=== PATIENT | male | born 1995 | race Caucasian/White ===

== ENCOUNTER 2022-01-24 07:00 | Emergency (ER) | payer OTHER, SELFPAY ==
[2022-01-24 07:42] VITALS: BP 123/82; PULSE 81; RESP 14; TEMP 36.7; O2SAT 99; BMI 27.3
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
[2022-01-24 07:59] VITALS: BP 126/76; PULSE 89; RESP 16; O2SAT 96
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
[2022-01-24 09:34] VITALS: BP 132/71
== END 2022-01-24 09:36 | disposition home or self-care (01) ==
PROVIDERS: Emergency Provider Physician Assistant; PCP Nurse Practitioner Family
DX: S00.03XA Contusion of scalp, initial encounter (principal); S22.42XA Multiple fractures of ribs, left side, initial encounter for closed fracture; V59.40XA Driver of pick-up truck or van injured in collision with unspecified motor vehicles in traffic accident, initial encounter
CPT/HCPCS: 70450; 71101; 99284

== ENCOUNTER 2023-02-11 10:43 | Emergency (ER) | payer OTHER, SELFPAY ==
[2023-02-11 10:51] VITALS: BP 140/84; PULSE 81; RESP 18; TEMP 36.8; O2SAT 98; BMI 27.6
--- NOTE | 2023-02-11 10:54 | XR_ITS ---
WS: [id number] Exam: XR hand RT min 3V* [id number] Date/Time of Exam: 02/11/2023 10:58 AM Reason For Exam: injury No fracture or dislocation. Soft tissue laceration of the distal third finger. No radiopaque foreign bodies identified. IMPRESSION: 1. No fracture or bony injury. 2. Laceration of the distal third finger.
--- NOTE | 2023-02-11 10:56 | W.ED.WOUNDLC ---
Documented by User: Aida Orosco MD 02/11/23 11:48 HPI - Wound/Laceration General: Chief Complaint: Wound/Laceration Stated Complaint: right hand finger laceration Time Seen by Provider: 02/11/23 10:51 Source: patient Mode of arrival: ambulatory Limitations: no limitations History of Present Illness: 27-year-old male states that he is at work was using a chainsaw he states that the chainsaw slipped and lacerated his right middle finger. He does have a laceration to the distal tip he has full range of motion rates his pain a 3 out of 10 denies any other injuries Associated symptoms: Denies chills, fever(s), nausea or vomiting Review of Systems Const: Denies: fever(s), chills, body aches or change in appetite Eyes: Denies: blurry vision or eye discomfort ENMT: Denies: throat pain or dental pain Card: Denies: chest pain Resp: Denies: dyspnea GI: Denies: abdominal pain, nausea, vomiting or diarrhea : Denies: dysuria Musc: Reports: extremity pain; Denies: neck pain or back pain Skin/Breast: Denies: rash Neuro: Denies: headache(s) Physical Exam Const: COMMON NORMALS: no acute distress, patient oriented x3 and healthy appearing HENMT: COMMON NORMALS: normocephalic and atraumatic HEAD & SCALP: normocephalic and atraumatic Eye: COMMON NORMALS: conjunctivae normal CONJUNCTIVA: Yes conjunctivae normal Neck/C-Spine: COMMON NORMALS: full ROM and supple Chest: COMMONS NORMALS: normal inspection of the chest Resp: COMMON NORMALS: normal respiratory effort Cardio: COMMON NORMALS: regular rate, regular rhythm and No murmurs present (Cardio) RATE: regular rate RHYTHM: regular rhythm Extremity: COMMON NORMALS: full ROM NARRATIVE EXTREMITY EXAM: Laceration to distal tip of right middle finger Y-shaped roughly OTHER: 1.5 cm no tendon involvement Neuro: COMMON NORMALS: patient oriented x3, moves all extremities and no focal motor deficits Psych: COMMON NORMALS: mental status grossly normal, Normal thought process present and cooperative THOUGHT PROCESS: Normal thought process present Skin: COMMON NORMALS: no rashes or lesions noted and no wounds GENERAL SKIN EXAM: no rashes or lesions noted Course Vital Signs: Vital signs: Vital Signs Temperature 98.3 F 02/11/23 10:51 Pulse Rate 81 02/11/23 10:51 Respiratory Rate 18 02/11/23 10:51 Blood Pressure 140/84 02/11/23 10:51 Pulse Oximetry 98 02/11/23 10:51 Oxygen Delivery Me thod Room Air 02/11/23 10:51 MDM - Wound/Laceration Medical Decision Making I was consulted by Dr. Orosco to repair patient's finger laceration. This was completed as documented. Other than laceration repair I did not actively participate in patient's care. ES Patient presents with finger laceration x-ray shows no fracture wound was repaired by midlevel he stable for discharge Motrin Tylenol for pain he is return if worsening. Discharge Plan Discharge Patient Disposition: Home Clinical Impression: Laceration Condition: Stable Prescriptions: No Action methocarbamol 750 mg tablet 750 mg PO Q8H Qty: 21 0RF Discharge Orders: Discharge ED (Routine); Ordered 02/11/23 Ordered By: Aida Orosco Referrals: Madeline Sherwood FNP [Primary Care Provider] - 4-7 days Discharge Diet: Advance as tolerated Discharge Activity: Resume usual activity Patient Instructions: Care For Your Stitches (ED), Finger Laceration (ED) Activity Restrictions/Additional Instructions: suture removal in 7 days Coding Level of Care Code ED Crutching Contractor for Chg Fwd Documented by User: [email or web address] Price 02/11/23 11:35 HPI - Wound/Laceration General: Chief Complaint: Wound/Laceration Stated Complaint: right hand finger laceration Time Seen by Provider: 02/11/23 10:51 Procedures Laceration Laceration 1: Site: hand (middle finger) Side (If applicable): right Size (cm): 1.5 Description: irregular and other (tissue loss from chain saw) Depth: simple, single layer Local Anesthetic: bupivacaine 0.25% (digital block) Amount of anesthesia used (mL): 2.5 Pre-repair: wound explored and irrigated extensively Size (cm): 4-0 Number of sutures: 4 Technique: simple, interrupted Course Vital Signs: Vital signs: Vital Signs Temperature 98.3 F 02/11/23 10:51 Pulse Rate 81 02/11/23 10:51 Respiratory Rate 18 02/11/23 10:51 Blood Pressure 140/84 02/11/23 10:51 Pulse Oximetry 98 02/11/23 10:51 Oxygen Delivery Me thod Room Air 02/11/23 10:51 MDM - Wound/Laceration Medical Decision Making I was consulted by Dr. Orosco to repair patient's finger laceration. This was completed as documented. Other than laceration repair I did not actively participate in patient's care. ES All radiology interpretation(s) finalized by discharge Discharge Plan Discharge Patient Disposition: Home Clinical Impression: Laceration Condition: Stable Prescriptions: No Action methocarbamol 750 mg tablet 750 mg PO Q8H Qty: 21 0RF Discharge Orders: Discharge ED (Routine); Ordered 02/11/23 Ordered By: Aida Orosco Referrals: Madeline Sherwood FNP [Primary Care Provider] - 4-7 days Discharge Diet: Advance as tolerated Discharge Activity: Resume usual activity Patient Instructions: Care For Your Stitches (ED), Finger Laceration (ED) Activity Restrictions/Additional Instructions: suture removal in 7 days Coding Level of Care Code ED Crutching Contractor for Edgardo Herr
[2023-02-11] MEDS: BUPivacaine 0.5% INJ 10 mL INJECTION (10:57)
[2023-02-11] MEDS: tetanus-dipt-pertussis 0.5 mL SDV IM (10:58)
--- NOTE | 2023-02-11 11:28 | PC.NURSE ---
laceration to Right 3rd digit repaired with sutures, laceration tray, irrigation of 250mL normal saline, betadine. bleeding controlled at this time.
== END 2023-02-11 11:53 | disposition home or self-care (01) ==
PROVIDERS: Emergency Provider Emergency Medicine; PCP Nurse Practitioner Family
DX: S61.212A Laceration without foreign body of right middle finger without damage to nail, initial encounter (principal); W29.3XXA Contact with powered garden and outdoor hand tools and machinery, initial encounter; Y99.0 Civilian activity done for income or pay; Z23 Encounter for immunization
CPT/HCPCS: 12001; 73130; 90471; 90715; 99284; J3490

== ENCOUNTER 2025-03-11 11:12 | Emergency (ER) | payer OTHER, SELFPAY ==
--- OUTSIDE RECORDS SUMMARY | 2025-03-04 22:06 | XMS_ITS | Encounter Summary ---
Author Organization [facility] Address [address] [place] [address] Care Team Providers Care Physical Trainer Name Role Phone Jordin Lara MD Primary Care Provider [phone] [phone] Reason for Visit * Reason Comments Wound Check Encounter Details Date Type Department Care Team (Late st Contact Info) Description 03/04/2025 10:06 PM MATHEMATICAL PHYSICIST - 03/04/2025 10:26 PM [facility] Emergency [facility] Emergency Medicine [address] [place] [address] [address] [place] [id number] Charlie Mejia MD [address] [place] [address] [place] [address] Encounter for post surgical wound check (Primary Dx) Discharge Disposition: Home or Self Care Social History Tobacco Use Types Packs/Day Years Used Date Smoking Tobacco: Some Days Cigarettes Cigars Smokeless Tobacco: Former Chew Tobacco Cessation:Ready to Q uit: Not Asked; Counseling Given: Not Answered Comments:2-3 small cigars a day Alcohol Use Standard Drinks/Week Comments Not Currently 0 (1 standard drink = 0.6 oz pur e alcohol) Food Insecurity Answer Date Recorded Do you find you are eating l ess than you should because you can t pay for food? No 03/04/2025 Transportation Needs Answer Date Record ed Have you gone without health care because you didn t have a way to get there? Or worry about transportation for future doctor visits, car pick up driver medication, etc.? No 2024 Housing Stability Answer Date Recorded Do you worry you won t have a steady place to sleep or struggle to pay rent or mortgage? No 03/04/2025 Utility Needs Answer Date Recorded Do you have difficulty payin g for utility costs (electric, water or gas bills)? No 03/04/2025 Medication Needs Answer Date Recorded Have you skipped taking medi cation due to cost or worry you can t afford new medications? No 03/04/2025 Feeling Safe Answer Date Recorded Are you in a relationship wi th someone who hurts you emotionally and/or physically? No 03/04/2025 Sex and Gender Information Value Date Recorded Sex Assigned at Not on file Legal Sex Male 11:36 PM MATHEMATICAL PHYSICIST Gender Identity Not on file Sexual Orientation Not on file documented as of this encounter Last Filed Vital Signs Vital Sign Reading Time Taken Comments Blood Pressure 130/98 03/04/2025 10:06 PM MATHEMATICAL PHYSICIST Pulse - - Temperature 36.9 C (98.4 F) 03/04/2025 10:06 PM MATHEMATICAL PHYSICIST Respiratory Rate 18 03/04/2025 10:06 PM MATHEMATICAL PHYSICIST Oxygen Saturation 100% 03/04/2025 10:06 PM MATHEMATICAL PHYSICIST Inhaled Oxygen Concentration - - Weight 85.7 kg (189 lb) 03/04/2025 10:06 PM MATHEMATICAL PHYSICIST Height 175.3 cm (5' 9 ) 03/04/2025 10:06 PM MATHEMATICAL PHYSICIST Body Mass Index 27.91 03/04/2025 10:06 PM MATHEMATICAL PHYSICIST documented in this encounter Discharge Instructions * Attachments The following attachments cannot be sent through Care Everywhere. * Wound Check (Nepalese) * Cephalexin (Nepalese) documented in this encounter Medications at Time of Discharge cephALEXin (KEFLEX) 500 mg capsule Take 1 Capsule (500 mg) by mouth 4 times daily for 7 days. 28 Capsule 03/04/2025 03/11/2025 ibuprofen (MOTRIN) 200 mg tablet Take 200 mg by mouth every 6 hours as needed for Pain, Mild. documented as of this encounter ED Notes * Amaya Porter RN - 03/04/2025 10:09 PM CST Jeff Puentes 29 y.o. male, arrived to the ED via TRANSPORTATION: private vehicle for complaints of wanting a wound check had a hernia repair and vasectomy last week at surgery center and on left testicle glue is coming off concerned that he has an open wound. Rates pain in right groin and left testicle 2/10 constant ache. Chief Complaint Patient presents with Wound Check . Vitals taken, patient placed on monitor, clothing removed as needed per policy, privacy provided to patient. Respiratory: WDL - Regular rhythm, symmetrical chest expansion, no dyspnea , Cardiac/Circulatory: WDL - No numbness or tingling, no chest pain , Skin: WDL - Normal color for ethnicity, skin intact, patient is Alert and Oriented x4, pain scale: 2/10, findings; bleeding: without any bleeding noted. Behavior during evaluation: appropriate. Belongings secured, patient Weapons assessment: denied possession of any weapons or firearms at this time. Patient comforted, all questions answered to the best of the staff's ability, education performed, and left patient in the room with the call light in reach, bed in lowest position, wheels locked, side rails up. EMATICAL PHYSICIST * Charlie Mejia MD - 03/04/2025 9:49 PM CST 03/05/25 7:35 PM HISTORY OF PRESENT ILLNESS Jeff Puentse, a 29 y.o. male presents to the ED with a Chief Complaint of Wound Check Subjective This patient is a 29-year-old white male who presents to the emergency department concerned about apostoperative wound. Patient underwent hernia repair and vas ectomy last week. He states the glue over the scrotal incision has come loose and has exposed to the wound. He is concerned it might get infected. He has noticed a little bit of yellow drainage. He has not had a fever. REVIEW OF SYSTEMS Review of Systems Constitutional: Negative for appetite change, chills, diaphoresis, fatigue and fever. HENT: Negative for congestion, ear pain, postnasal drip, rhinorrhea, sinus pressure and sore throat. Eyes: Negative for pain and visual disturbance. Respiratory: Negative for cough, chest tightness, shortness of breath and wheezing. Cardiovascular: Negative for chest pain, palpitations and leg swelling. Gastrointestinal: Negative for abdominal distention, abdominal pain, blood in stool, constipation, diarrhea, nausea and vomiting. Genitourinary: Negative for decreased urine volume, difficulty urinating, dysuria, flank pain, frequency, hematuria, testicular pain and urgency. Musculoskeletal: Negative for arthralgias, back pain, joint swelling, myalgias, neck pain and neck stiffness. Skin: Negative for rash. Neurological: Negative for dizziness, seizures, syncope, speech difficulty, weakness, light-headedness, numbness and headaches. Hematological: Negative for adenopathy. Psychiatric/Behavioral: Negative for behavioral problems, confusion, decreased concentration, dysphoric mood, self-injury, sleep disturbance and suicidal ideas. The patient is not nervous/anxious. All other systems reviewed and are negative. PAST MEDICAL HISTORY REVIEWED MEDICAL: Patient has a past medical history of Bronchitis and GERD (gastroesophageal reflux disease). SURGICAL: Patient has a past surgical history that includes pr laparoscopy surg cholecystectomy (N/A, 10/23/2023); hernia repair; and vasectomy. FAMILY: Patient's family history includes Melanoma in his father; Other in his paternal grandfather. SOCIAL: reports that he has been smoking cigars and cigarettes. He has quit using smokeless tobacco. His smokeless tobacco use included chew. He reports that he does not currently use alcohol. He reports that he does not use drugs. History Weight: 2296 g (5 lb 1 oz) Social History Other Topics Concern Not on file ALLERGIES Patient has no known allergies. HOME MEDICATIONS Discharge Medication List as of 03/04/2025 10:21 PM START taking these medications Details cephALEXin (KEFLEX) 500 mg capsule Take 1 Capsule (500 mg) by mouth 4 times daily for 7 days., Disp-28 Capsule, R-0 CONTINUE these medications which have NOT CHANGED Details ibuprofen (MOTRIN) 200 mg tablet Take 200 mg by mouth every 6 hours as needed for Pain, Mild. STOP taking these medications omeprazole (PriLOSEC) 20 mg Capsule, Delayed Release(E.C.) Comments: Reason for Stopping: multivitamin (DAILY-ERMIAS) tablet Comments: Reason for Stopping: Objective PHYSICAL EXAM INITIAL VS BP: (!) 130/98 (03/04/252205), Heart Rate: 94 bpm (03/04/252205), Resp: 18 (03/04/252205), Pulse: (not recorded), Temp: 98.4 ??F (36.9 ??C) (03/04/252205), Temp src: Temporal (03/04/252205), SpO2: 100 % (03/04/252205), Height: 5' 9 (175.3 cm) (03/04/252205), Weight: 85.7 kg (189 lb) (03/04/252205), BMI (Calculated): (!) 27.89 (03/04/252205) No LMP for male patient. Physical Exam Vitals and nursing note reviewed. Constitutional: General: He is not in acute distress. Appearance: Normal appearance. He is not ill-appearing. HENT: Head: Normocephalic and atraumatic. Eyes: Conjunctiva/sclera: Conjunctivae normal. Pupils: Pupils are equal, round, and reactive to light. Cardiovascular: Rate and Rhythm: Normal rate and regular rhythm. Pulmonary: Effort: Pulmonary effort is normal. No respiratory distress. Breath sounds: Normal breath sounds. Abdominal: General: Abdomen is flat. Bowel sounds are normal. Palpations: Abdomen is soft. Tenderness: There is no abdominal tenderness. Musculoskeletal: General: No tenderness. Normal range of motion. Skin: General: Skin is warm and dry. Comments: The skin over the scrotum at the surgical site appears to be healing normal. No drainage or erythema. Neurological: General: No focal deficit present. Mental Status: He is alert and oriented to person, place, and time. Psychiatric: Mood and Affect: Mood normal. Behavior: Behavior normal. DIAGNOSTICS LAB: No data to display RADIOLOGY: No orders to display EKG: PROCEDURES Procedures MEDICAL DECISION MAKING AND PLAN OF CARE Medical Decision Making Patient was placed on Keflex. Recommended he follow-up with his surgeon as scheduled. He was discharged in stable condition. Risk Prescription drug management. Clinical Scoring & Consults Medications Administered During the ED Stay from 03/04/20250 to 03/05/2025 1935 Date/Time Order Dose Route Action 03/04/20252224 MATHEMATICAL PHYSICIST cephALEXin (KEFLEX) capsule 500 mg 500 mg Oral Given Discharge Medication List as of 03/04/2025 10:21 PM START taking these medications Details cephALEXin (KEFLEX) 500 mg capsule Take 1 Capsule (500 mg) by mouth 4 times daily for 7 days., Disp-28 Capsule, R-0 CONTINUE these medications which have NOT CHANGED Details ibuprofen (MOTRIN) 200 mg tablet Take 200 mg by mouth every 6 hours as needed for Pain, Mild. STOP taking these medications omeprazole (PriLOSEC) 20 mg Capsule, Delayed Release(E.C.) Comments: Reason for Stopping: multivitamin (DAILY-ERMIAS) tablet Comments: Reason for Stopping: LAST VS BP: (!) 130/98 (03/04/252205), Heart Rate: 94 bpm (03/04/252205), Resp: 18 (03/04/252205), Pulse: (not recorded), Temp: 98.4 ??F (36.9 ??C) (03/04/252205), Temp src: Temporal (03/04/252205), SpO2: 100 % (03/04/252205) CLINICAL IMPRESSION Diagnosis Diagnosis Comment Added By Time Added Encounter for post surgical wound check [Z48.89] Charlie Mejia MD 03/04/2025 10:19 PM DISPOSITION, EDUCATION AND MEDICATION RECONCILIATION Medications reconciled. See after visit summary for patient education on discharged patients. ED Disposition ED Disposition Discharge Condition Stable User Charlie Mejia MD Date/Time Sat Mar 04, 2025 10:18 PM Comment -- ATTESTATION STATEMENTS EMATICAL PHYSICIST documented in this encounter Miscellaneous Notes * Gen AI VANE - GENERATIVE AI HANDOFF NOTE - 03/05/2025 11:48 PM CST ## ER_course: ## # DIAGNOSIS: Encounter for post-surgical wound check. Jeff Puentes, a 29-year-old male, presented to the ED with concerns about a postoperative wound following hernia repair and vasectomy. He reported that the glue over the scrotal incision had come loose, exposing the wound, and noticed a little yellow drainage. He was concerned about potential infection but had no fever. Pain was rated at 2/10 in the right groin and left testicle. # During the ER visit, the physical exam showed normal healing at the surgical site with no drainage or erythema. Vitals were stable with a blood pressure of 130/98 and heart rate of 94 bpm. The patient was alert and oriented, and no acute distress was noted. # Medications administered included cephALEXin (KEFLEX) 500 mg orally, given during the ED stay. ## Follow_up_orders: ## # START taking cephALEXin (KEFLEX) 500 mg capsule, 1 capsule by mouth 4 times daily for 7 days. # CONTINUE ibuprofen (MOTRIN) 200 mg tablet, 200 mg by mouth every 6 hours as needed for mild pain. # STOP omeprazole (PriLOSEC) 20 mg capsule and multivitamin (DAILY-ERMIAS) tablet. # Recommended follow-up with the surgeon as scheduled. ## Home_Situation: ## # No specific factors impairing follow-up care were noted. The patient arrived via private vehicle, indicating access to transportation. No language barriers or financial constraints were mentioned. EMATICAL PHYSICIST documented in this encounter Plan of Treatment Not on file documented as of this encounter Visit Diagnoses Diagnosis Encounter for post surgical wound check- Primary documented in this encounter Administered Medications Inactive Administered Medications - up to 3 most recent administrations Medication Order MAR Action Action Date Dose Rate Site cephALEXin (KEFLEX) capsule 500 mg 500 mg, Oral, ONE TIME ONLY, 1 dose, On 03/04/25 at 2230, Routine, Antibiotic Indication: Wound / Cellulitis / Abscess Given 03/04/2025 10:25 PM MATHEMATICAL PHYSICIST 500 mg documented in this encounter Active and Recently Administered Medications Times are shown in MATHEMATICAL PHYSICIST. Scheduled Medication Order 03/02/2025 03/03/2025 03/04/2025 cephALEXin (KEFLEX) capsule 500 mg (COMPLETED) 500 mg, Oral, ONE TIME ONLY, 1 dose, On 03/04/25 at 2230, Routine, Antibiotic Indication: Wound / Cellulitis / Abscess 2224 (Given - Provid er: Amaya Porter RN) documented in this encounter Care Teams Physical Trainer Relationship Specialty Start Date End Date Jordin Lara MD [address] [address] PCP - General Family Practice 12/13/24 documented as of this encounter
[2025-03-11 11:19] VITALS: BP 131/89; PULSE 80; RESP 14; TEMP 37.2; O2SAT 97; BMI 27.8
--- NOTE | 2025-03-11 11:19 | USR_ITS ---
PROCEDURE INFORMATION: Exam: US Scrotum Exam date and time: 03/11/2025 12:24 PM Age: 29 years old Clinical indication: Scrotum pain; Prior Surgery; Surgery Date: <1 month; Surgery Type: history of vasectomy 16 days ago; Additional Info: testicular swelling and pain status post vasectomy TECHNIQUE: Imaging protocol: Real-time ultrasound of the scrotum and contents with color Doppler and image documentation. COMPARISON: No relevant prior studies available. FINDINGS: Right testicle: Right testicle is normal in size and echogenicity, measuring 4.1 x 2.0 x 2.7 cm. No right testicular mass. Normal color Doppler and arterial waveforms. No torsion. Left testicle: Left testicle is normal in size and echogenicity, measuring 3.7 x 2.2 x 2.4 cm. No left testicular mass. Normal color Doppler and arterial waveforms however the left testicle slightly hypervascular compared to the right side. No torsion. Epididymides: Right epididymis measures 8 mm in thickness with normal echogenicity. Left epididymis is thickened and hypervascular measuring 13 mm in thickness. There is a tiny left epididymal cyst present. Scrotum/soft tissues: Avascular complex fluid is seen within the scrotum bilaterally, left greater than right side. Question of complex skin thickening or fluid collection in the posterior scrotal wall on the left. US/US scrotum [id number] IMPRESSION: 1. Hypervascular left testicle and epididymis suggesting epididymo-orchitis. Complex fluid within the scrotum bilaterally, scrotal hematoma or abscess is not totally excluded. 2. Question of scrotal wall abscess versus hematoma in the posterior wall on the left.
--- OUTSIDE RECORDS SUMMARY | 2025-03-11 11:21 | XMS_ITS | Clinical Summary ---
Author Organization [facility] Address [address] [facility] Attn: Epic Prelude [place] [address] Care Team Providers Care Corporate Buyer Name Role Phone Jordin Lara MD Primary Care Provider [phone] [phone] Allergies No known active allergies Medications ibuprofen (MOTRIN) 200 mg tablet Take 200 mg by mouth every 6 hours as needed for Pain, Mild. Active cephALEXin (KEFLEX) 500 mg capsule Take 1 Capsule (500 mg) by mouth 4 times daily for 7 days. 28 Capsule 03/04/2025 Active Active Problems Problem Noted Date Diagnosed Date Cholecystitis 10/23/2023 Multiple closed fractures of ribs of left side 1 Tobacco use 01/22/2015 Snoring 08/28/2011 Hypertrophy tonsils 08/28/2011 Resolved Problems Problem Noted Date Diagnosed Date Resolved Date Malaise and fatigue 08/28/2011 02/13/20 14 Encounters Date Type Department Care Team Description 03/07/2025 External Device Data [facility] ABSTRACTION Provider, Abstract 03/07/2025 External Device Data [facility] ABSTRACTION Provider, Abstract 03/07/2025 External Device Data [facility] ABSTRACTION Provider, Abstract 03/04/2025 10:06 PM MANUFACTURING ASSISTANT - 03/04/2025 10:26 PM [facility] Emergency [facility] Emergency Medicine [address] [place] [address] Charlie Mejia MD Encounter for post surgical wound check (Primary Dx) Discharge Disposition: Home or Self Care 03/04/2025 Travel 02/15/2025 External Device Data STL ABSTRACTION Provider, Abstract 02/15/2025 External Device Data [facility] ABSTRACTION Provider, Abstract 02/08/2025 External Device Data [facility] ABSTRACTION Provider, Abstract 02/08/2025 External Device Data [facility] ABSTRACTION Provider, Abstract 01/18/2025 3:00 PM CDT - 01/18/2025 11:59 PM CDT Hospital Encounter [facility] [address] [place] [id number] Sergio Melara MD Discharge Disposition: Home or Self Care 01/18/2025 Prep for Surgery [facility] [address] [place] [id number] Sergio Melara MD 12/20/2024 External Device Data STL ABSTRACTION Provider, Abstract 12/13/2024 12:00 PM CDT Video Visit [facility] [address] [place] [id number] Tricia Edwards NP Right inguinal hernia (Primary Dx); Encounter for vasectomy counseling from Last 3 Months Family History Medical History Relation Name Comments Melanoma Father Other Paternal Grandfather AAA Breast Cancer Neg Hx Colon Cancer Neg Hx Relation Name Status Comments Father Maternal Grandfather Maternal Grandmother Mother Paternal Grandfather Paternal Grandmother Social History Tobacco Use Types Packs/Day Years [...] worry about transportation for future doctor visits, picket labor union medication, etc.? No 2024 Housing Stability Answer [...] on file Legal Sex Male 11:36 PM MANUFACTURING ASSISTANT Gender Identity Not on file Sexual Orientation Not on file Last Filed Vital Signs Vital Sign Reading Time Taken Comments Blood Pressure 130/98 03/04/2025 10:06 PM MANUFACTURING ASSISTANT Pulse 81 01/18/2025 3:07 PM CDT Temperature 36.9 C (98.4 F) 03/04/2025 10:06 PM MANUFACTURING ASSISTANT Respiratory Rate 18 03/04/2025 10:06 PM MANUFACTURING ASSISTANT Oxygen Saturation 100% 03/04/2025 10:06 PM MANUFACTURING ASSISTANT Inhaled Oxygen Concentration - - Weight 85.7 kg (189 lb) 03/04/2025 10:06 PM MANUFACTURING ASSISTANT Height 175.3 cm (5' 9 ) 03/04/2025 10:06 PM MANUFACTURING ASSISTANT Body Mass Index 27.91 03/04/2025 10:06 PM MANUFACTURING ASSISTANT Plan of Treatment Health Maintenance Due Date Last Done Comments DTAP/TDAP/TD VACCINES (1 - Tdap) 2013 HPV VACCINES (1 - 3-dose SCDM series) 2021 Preventative Visit- Commercial 04/20/2024 INFLUENZA VACCINE (#1) 2024 HEPATITIS B VACCINES Completed 02/23/1996, 02/16/1995, 1994 Medical Devices Implanted Type Area Cabin Crew Device Identifier Shelf Expiration Date Model / Serial / Lot Clip Crtg Med/Lrg 1112 - [id number] Implanted:Qty: 1 on 10/23/2023 by Jamie Pringle MD at [facility] Clip N/A: Abdomen [employer] [id number] 07/15/2028 1112 / / [id number] Insurance [facility] [employer] [id number] [facility] Address: [address] [address] Advance Directives For more information, please contact: [phone] * Full Code (Latest Code Status on File) Date Activated Date Inactivated Comments 10/23/2023 4:44 PM 10/23/2023 9:25 PM * Full Code Date Activated Date Inactivated Comments 10/23/2023 3:21 PM 10/23/2023 4:44 PM Care Teams Corporate Buyer Relationship Specialty Start Date End Date Jordin Lara MD [address] [phone] PCP - General Family Practice 12/13/24
--- OUTSIDE RECORDS SUMMARY | 2025-03-11 11:21 | XMS_ITS | Encounter Summary ---
Author Organization [facility] Address [address] [place] [address] Care Team Providers Care Changer Fixer Name Role Phone Jordin Lara MD Primary Care Provider [phone] Encounter Details Date Type Department Care Team (Late st Contact Info) Description 03/07/2025 External Device Data [facility] ABSTRACTION Provider, Abstract NO ADDRESS ON FILE Social History Tobacco Use Types Packs/Day Years Used Date Smoking Tobacco: Some Days Cigarettes Cigars Smokeless Tobacco: Former Chew Comments:2-3 small cigars a day Alcohol Use [...] worry about transportation for future doctor visits, slat pickler medication, etc.? No 2024 Housing Stability Answer [...] on file Legal Sex Male 11:36 PM TRAIN GATE ATTENDANT Gender Identity Not on file Sexual Orientation Not on file documented as of this encounter Plan of Treatment Not on file documented as of this encounter Visit Diagnoses Not on filedocumented in this encounter Care Teams Changer Fixer Relationship Specialty Start Date End Date Jordin Lara MD [address] [address] PCP - General Family Practice 12/13/24 documented as of this encounter
--- OUTSIDE RECORDS SUMMARY | 2025-03-11 11:21 | XMS_ITS | Encounter Summary ---
Author Organization [facility] Address [address] [place] [address] Care Team Providers Care Fan Engine Engineer Name Role Phone Jordin Lara MD Primary Care Provider [phone] Encounter Details Date Type Department Care Team [...] worry about transportation for future doctor visits, nut picker medication, etc.? No 2024 Housing Stability Answer [...] on file Legal Sex Male 11:36 PM RAILWAYS ASSISTANT Gender Identity Not on file Sexual Orientation Not on file documented as of this encounter Plan of Treatment Not on file documented as of this encounter Visit Diagnoses Not on filedocumented in this encounter Care Teams Fan Engine Engineer Relationship Specialty Start Date End Date Jordin Lara MD [address] [address] PCP - General Family Practice 12/13/24 documented as of this encounter
--- OUTSIDE RECORDS SUMMARY | 2025-03-11 11:21 | XMS_ITS | Clinical Summary ---
Author Organization [facility] Address [address] [place] [id number] Care Team Providers Care Biomass Technician Name Role Phone Unavailable Primary Care Provider Unavailabl e Allergies No known active allergies Medications Multiple Vitamin (DAILY VITES) TABS Take 1 tablet by mouth Nightly Active Encounters Date Type Department Care Team Description 01/27/2025 10:50 AM CDT Office Visit [facility] [employer] [facility] [employer] [facility] [address] [employer] [place], [place] [id number] Encounter for drug screening (Primary Dx) from Last 3 Months Social History Tobacco Use Types Packs/Day Years Used Date Smoking Tobacco: Former Cigarettes Smokeless Tobacco: Never Tobacco Cessation:Counseling Given: Not Answered Alcohol Use Standard Drinks/Week Comments Not Currently 0 (1 standard drink = 0.6 oz pur e alcohol) Alcohol Use Answer Date Recorded Frequency of Alcohol Consumption Not on file 06/28/2024 Average Number of Drinks Not on file 025 Frequency of Binge Drinking Not on file 06/18 Alcohol Use Status Not Currently 06/28/2024 Average alcohol consumption Not on file 06/18 Sex and Gender Information Value Date Recorded Sex Assigned at Not on file Legal Sex Male 1:06 PM CDT Gender Identity Not on file Sexual Orientation Not on file Last Filed Vital Signs Vital Sign Reading Time Taken Comments Blood Pressure 100/70 07/29/2024 8:17 AM CDT Pulse 88 07/13/2024 12:38 PM CDT Temperature 37.1 C (98.7 F) 07/13/2024 12:38 PM CDT Respiratory Rate 18 07/13/2024 12:38 PM CDT Oxygen Saturation 98% 07/13/2024 12:38 PM CDT Inhaled Oxygen Concentration - - Weight 88 kg (194 lb 1.6 oz) 07/29/2024 8:17 AM CDT Height 175.3 cm (5' 9 ) 07/29/2024 8:17 AM CDT Body Mass Index 28.66 07/29/2024 8:17 AM CDT Plan of Treatment Health Maintenance Due Date Last Done Comments HIV Screening 1994 Hepatitis C Screening ages 1 8 to 79 once 1994 MMR VACCINES (1 of 1 - Stand rody series) 08/06/1995 YEARLY WELLNESS EXAM 1997 DEPRESSION SCREENING 2006 Varicella Vaccine (1 of 2 - 13+ 2-dose series) 08/06/2007 HPV VACCINES (1 - Male 3-dos e series) 2009 BMI Above/Below Normal Parameters 2012 ADULT TETANUS 2013 HEPATITIS B VACCINES (1 of 3 - 19+ 3-dose series) 2013 Influenza Vaccine 11/18/2024 COVID-19 Immunization (1 - 2 - season) 2024 Zoster Vaccine (Recombinant Vaccine) (1 of 2) 2044 HEPATITIS A VACCINES Aged Out No long er eligible based on patient's age to complete this topic HIB VACCINES Aged Out No longer eligi ble based on patient's age to complete this topic IPV VACCINES Aged Out No longer eligi ble based on patient's age to complete this topic MENINGOCOCCAL VACCINE Aged Out No glenna hua eligible based on patient's age to complete this topic Meningococcal B Vaccine Aged Out No l onger eligible based on patient's age to complete this topic Pneumococcal Vaccine: Peds t o 50 & At-Risk Patients Aged Out No longer eligible b ased on patient's age to complete this topic ROTAVIRUS VACCINES Aged Out No longer eligible based on patient's age to complete this topic
--- OUTSIDE RECORDS SUMMARY | 2025-03-11 11:21 | XMS_ITS | Encounter Summary ---
Author Organization [facility] Address [address] [facility] Attn: [place] [address] Care Team Providers Care Dye Line Operator Name Role Phone Jordin Lara MD Primary Care Provider [phone] Encounter Details Date Type Department Care Team (Latest Contact Info) Description 03/04/2025 Travel Social History Tobacco Use Types Packs/Day Years [...] worry about transportation for future doctor visits, picker and sorter load and unload medication, etc.? 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
--- OUTSIDE RECORDS SUMMARY | 2025-03-11 11:21 | XMS_ITS | Clinical Summary ---
Author Organization [facility] Address [address] [place] [address] Care Team Providers Care Fertilizer Mixer Name Role Phone Patsy Wilder MD Primary Care Provider Allergies No known active allergies Medications diphenhydrAMINE (BENADRYL) 25 mg capsule Take 25 mg by mouth every 6 hours as needed for Allergies. Active Active Problems Problem Noted Date Diagnosed Date Tobacco use 01/22/2015 Hypertrophy tonsils 08/28/2011 Snoring 08/28/2011 Resolved Problems Problem Noted Date Diagnosed Date Resolved Date Malaise and fatigue 08/28/2011 02/13/20 14 Family History Medical History Relation Name Comments Melanoma Father Healthy Maternal Grandfather Healthy Maternal Grandmother Other Mother trigeminal neur algia Other Paternal Grandfather abd ane urysm Healthy Paternal Grandmother Breast Cancer Neg Hx Colon Cancer Neg Hx Relation Name Status Comments Father Maternal Grandfather Maternal Grandmother Mother Paternal Grandfather Paternal Grandmother Social History Tobacco Use Types Packs/Day Years Used Date Smoking Tobacco: Every Day Cigarettes 1 3 Smokeless Tobacco: Former Quit: 07/19/2014 Tobacco Cessation:Ready to Q uit: No; Counseling Given: No Alcohol Use Standard Drinks/Week Comments Yes 0 (1 standard drink = 0.6 oz pur e alcohol) occassional Sex and Gender Information Value Date Recorded Sex Assigned at Not on file 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 Gender Identity Not on file Sexual Orientation Not on file Occupation Industry Job Start Date Job End Date Not on file Not on file Not on file Not on file Last Filed Vital Signs Vital Sign Reading Time Taken Comments Blood Pressure 122/72 10/26/2017 1:51 PM CDT Pulse 84 10/26/2017 1:51 PM CDT Temperature 36.8 C (98.2 F) 10/26/2017 1:51 PM CDT Respiratory Rate 12 10/26/2017 1:51 PM CDT Oxygen Saturation 99% 10/26/2017 1:51 PM CDT Inhaled Oxygen Concentration - - Weight 70.9 kg (156 lb 3.2 oz) 10/26/2017 1:51 P M CDT Height 180.3 cm (5' 11 ) 10/26/2017 1:51 PM CDT Body Mass Index 21.79 10/26/2017 1:51 PM CDT Plan of Treatment Health Maintenance Due Date Last Done Comments DTAP/TDAP/TD VACCINES (1 - Tdap) 2013 HEPATITIS B VACCINES (1 of 3 - 19+ 3-dose series) 07/19 HPV VACCINES (1 - 3-dose SCDM series) 2021 INFLUENZA VACCINE (#1) 2024 Care Teams Fertilizer Mixer Relationship Specialty Start Date End Date Patsy Wilder MD [address] [phone] PCP - General Family Practice 07/05/13
--- OUTSIDE RECORDS SUMMARY | 2025-03-11 11:21 | XMS_ITS | Encounter Summary ---
Author Organization [facility] Address [address] [place] [address] Care Team Providers Care House Visitor Name Role Phone Jordin Lara MD Primary Care Provider [phone] Encounter Details Date Type Department Care Team [...] worry about transportation for future doctor visits, cotton picking machine operator medication, etc.? 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
--- OUTSIDE RECORDS SUMMARY | 2025-03-11 11:21 | XMS_ITS | Encounter Summary ---
Author Organization [facility] Address [address] [place] [address] Care Team Providers Care Global Technical Writer Name Role Phone Patsy Wilder MD Primary Care Provider Encounter Details Date Type Department Care Team (Late st Contact Info) Description 01/11/2008 Outpatient Historical [facility] [address] 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
--- NOTE | 2025-03-11 11:40 | ED_ITS ---
HPI - Male Genitourinary 2 General: Chief complaint: Urogenital-Male Stated complaint: Post Op 02/23 Swollen Testicals Time Seen by Provider: 03/11/25 11:19 History of Present Illness: 29-year-old man with a history of a rece nt outpatient surgery hernia repair and vasectomy who presents to the emergency room with continued testicular swelling. His left testicle in particular is swollen painful it has been this way for about 16 days now he says. No trouble urinating. No fevers. Related Data Previous Rx's ?Medication ?Instructions ?Recorded methocarbamol 750 mg tablet 750 mg PO Q8H #21 tabs 11/08 sulfamethoxazole 800 1 tab PO BID PRN infection 7 days 02/16/23 mg-trimethoprim 160 mg tablet #14 tabs (Bactrim DS) mupirocin 2 % topical ointment 1 applic topical TID 10 days #15 02/21/23 grams Allergies Allergy/AdvReac Type Severity Reaction Status Date / Time No Known Allergies Allergy Verified 03/11/25 11:26 Review of Systems 2 Narrative: Constitutional symptoms: Negative except as documented in HPI. Skin symptoms: Negative except as documented in HPI. Eye symptoms: Negative except as documented in HPI. ENMT symptoms: Negative except as documented in HPI. Respiratory symptoms: Negative except as documented in HPI. Cardiovascular symptoms: Negative except as documented in HPI. Gastrointestinal symptoms: Negative except as documented in HPI. Genitourinary symptoms: Negative except as documented in HPI. Musculoskeletal symptoms: Negative except as documented in HPI. Neurologic symptoms: Negative except as documented in HPI. Psychiatric symptoms: Negative except as documented in HPI. Endocrine symptoms: Negative except as documented in HPI. Physical Exam 2 Narrative: EXAM NARRATIVE: General: Alert, no acute distress. Skin: warm and dry Head: Normocephalic Neck: Trachea midline Eye: Extraocular movements are intact. Ears, nose, mouth and throat: Oral mucosa moist Respiratory: Respirations are non-labored Musculoskeletal: Normal ROM Gastrointestinal: Abdomen does not appear distended Genitourinary: Does have some swelling of the left testicle with some redness of the scrotum. Incision is healing secondarily. Tenderness of the left testicle Neurological: Alert and oriented, No focal neurological deficit observed. Psychiatric: Cooperative, appropriate mood & affect. Course 2 Vital Signs: Vital signs: Vital Signs Temperature 98.9 F 03/11/25 11:19 Pulse Rate 79 03/11/25 14:10 Respiratory Rate 16 03/11/25 14:10 Blood Pressure 117/77 03/11/25 14:10 Pulse Oximetry 98 03/11/25 14:10 Oxygen Delivery Me thod Room Air 03/11/25 11:19 MDM - Male Medical Decision Making Medical decision making Patient's reason for coming to the emergency room: Testicular pain Social determinants: Employed and I reviewed the patient's medical record. Patient takes no chronic medications. I reviewed the patient's current home meds Patient tells me he recently completed a round of Keflex. Alternate historians: None Differential diagnosis: including but not limited to and based on the above HPI, review of systems and physical exam: Concern for testicular torsion, infection, epididymitis. Orders placed to evaluate differential diagnosis based on the above differential, HPI and physical exam Scrotal ultrasound showed hypervascular left testicle and epididymis suggesting epididymo orchitis. Question of scrotal wall abscess versus hematoma in the posterior wall on the left. This was reviewed and interpreted by myself the emergency room physician. I also reviewed the radiology report. Lab Review: Laboratory results were reviewed and interpreted by myself the emergency room physician. No leukocytosis. No anemia. No renal failure. Lactate and CRP are normal. Assessment of risk: Level of risk: Moderate risk. Groin infections can be quite dangerous and this patient has already been treated with a round of antibiotics Hospitalization considerations: Patient is being transferred to [facility] in [place] for evaluation by urology and continued IV antibiotics Reexamination: Patient remained stable. No increased work of breathing. No altered mental status. No focal motor deficits. Assessment and plan: Scrotal abscess ?Normal saline bolus, Toradol, Flagyl and Cipro IV. -I discussed the patient with the accepting physician on-call. - Discussed findings and plan with patient. Answered any questions. - All laboratory values were reviewed and interpreted personally by myself, the ER physician - All imaging was reviewed and interpreted personally by myself, the ER physician. - Evaluation and treatment of this problem were appropriate in the emergency setting Lab Data 03/11/25 13:22 03/11/25 13:22 Radiology Impressions Scrotum Ultrasound 03/11/25 11:19 IMPRESSION: 1. Hypervascular left testicle and epididymis suggesting epididymo-orchitis. Complex fluid within the scrotum bilaterally, scrotal hematoma or abscess is not totally excluded. 2. Question of scrotal wall abscess versus hematoma in the posterior wall on the left. ADDENDUM: 03/11/25 [id number] THIS REPORT CONTAINS FINDINGS THAT MAY BE CRITICAL TO PATIENT CARE. The findings were verbally communicated via telephone conference with JULIA GALLAGHER at 1:14 PM AGRONOMY INSTRUCTOR on 03/11/2025. The findings were acknowledged and understood. Laboratory Results WBC 9.96 10^3/uL (3.29-11.43) 03/11/25 13:22 RBC 4.76 10^6/uL (3.85-5.65) 03/11/25 13:22 Hgb 13.90 g/dL (11.27-16.99) 03/11/25 13:22 Hct 42.2 % (37-53) 03/11/25 13:22 MCV 88.7 fl (82-101) 03/11/25 13:22 MCH 29.2 pg (27-33) 03/11/25 13:22 MCHC 32.9 g/dL (30-55) 03/11/25 13:22 RDW 12.2 % (12.1-15.1) 03/11/25 13:22 Plt Count 266 10^3/cmm (157-399) 03/11/25 13:22 MPV 10.1 fL (7.4-10.4) 03/11/25 13:22 Neut % (Auto) 73.9 % 03/11/25 13:22 Lymph % (Auto) 17.4 % 03/11/25 13:22 Calhoun % (Auto) 6.6 % 03/11/25 13:22 Eos % (Auto) 1.4 % 03/11/25 13:22 Baso % (Auto) 0.4 % 03/11/25 13:22 Neut # (Auto) 7.36 10^3/uL (1.8-7.7) 03/11/25 13:22 Lymph # (Auto) 1.7 10^3/uL (0.8-4.8) 03/11/25 13:22 Calhoun # (Auto) 0.7 10^3/uL (0.2-0.9) 03/11/25 13:22 Eos # (Auto) 0.1 10^3/uL (0.0-0.8) 03/11/25 13:22 Baso # (Auto) 0.0 10^3/uL (0.0-0.1) 03/11/25 13:22 Nucleated RBC % (auto) 0 % 03/11/25 13:22 Nucleated RBCs # 0.0 /100WBC 03/11/25 13:22 ESR 2 mm/hr (0-10) 03/11/25 13:22 Sodium 138 mmol/L (136-145) 03/11/25 13:22 Potassium 4.3 mmol/L (3.5-5.1) 03/11/25 13:22 Chloride 103 mmol/L (98-107) 03/11/25 13:22 Carbon Dioxide 29 mmol/L (22-29) 03/11/25 13:22 Anion Gap 10.3 (5-19) 03/11/25 13:22 BUN 14 mg/dL (6-20) 03/11/25 13:22 Creatinine 0.8 mg/dL (0.7-1.2) 03/11/25 13:22 GFR Calculation 113.5 mL/min (90-130) 03/11/25 13:22 Glucose 88 mg/dL (65-115) 03/11/25 13:22 Calculated Osmolality 286 mOsm/kg (285-295) 03/11/25 13:22 Lactic Acid 0.6 mmol/L (0.5-2.2) 03/11/25 13:22 Calcium 9.6 mg/dL (8.5-10.5) 03/11/25 13:22 Total Bilirubin 0.7 mg/dL (0.15-1.2) 03/11/25 13:22 AST 19 U/L (0-40) 03/11/25 13:22 ALT 20 U/L (0-41) 03/11/25 13:22 Alkaline Phosphatase 77 U/L (40-130) 03/11/25 13:22 C-Reactive Protein 3.0 mg/L (0.0-4.9) 03/11/25 13:22 Total Protein 7.1 g/dL (6.6-8.7) 03/11/25 13:22 Albumin 4.5 g/dL (3.5-5.2) 03/11/25 13:22 Globulin 2.6 g/dL (1.3-4.6) 03/11/25 13:22 All radiology interpretation(s) finalized by discharge Discharge Plan Discharge Patient Disposition: Xfer Short-Term Hosp Clinical Impression: Scrotal abscess Condition: Stable Referrals: Madeline Sherwood FNP [Primary Care Provider, Nurse Practitioner] Print Language: Macedonian Coding Level of Care Code ED Game Farm Helper for Edgardo Herr
[2025-03-11 13:28] LABS: Hematocrit 42.2 % (37-53); Hemoglobin 13.90 g/dL (11.27-16.99); Mean Corpuscular HGB Conc 32.9 g/dL (30-55); Mean Corpuscular Hemoglobin 29.2 pg (27-33); Mean Corpuscular Volume 88.7 fl (82-101); Nucleated Red Blood Cells % 0 %; Platelet Count 266 10^3/cmm (157-399); Red Blood Count 4.76 10^6/uL (3.85-5.65); White Blood Count 9.96 10^3/uL (3.29-11.43)
[2025-03-11 13:50] LABS: Lactic Sepsis W/Reflex 0.6 mmol/L (0.5-2.2)
[2025-03-11 13:51] LABS: Alanine Aminotransferase 20 U/L (0-41); Albumin Level 4.5 g/dL (3.5-5.2); Alkaline Phosphatase 77 U/L (40-130); Anion Gap 10.3 (5-19); Aspartate Amino Transferase 19 U/L (0-40); Blood Urea Nitrogen 14 mg/dL (6-20); Calcium 9.6 mg/dL (8.5-10.5); Carbon Dioxide 29 mmol/L (22-29); Chloride 103 mmol/L (98-107); Globulin 2.6 g/dL (1.3-4.6); Glucose 88 mg/dL (65-115); Osmolality Calculated 286 mOsm/kg (285-295); Potassium 4.3 mmol/L (3.5-5.1); Sodium 138 mmol/L (136-145); Total Protein 7.1 g/dL (6.6-8.7)
[2025-03-11 14:10] VITALS: BP 117/77; PULSE 79; RESP 16; O2SAT 98
[2025-03-11] MEDS: metroNIDAZOLE IV 500 MG/100 ML PREMIX 100 MG IV (14:10)
[2025-03-11 15:27] VITALS: BP 121/79; PULSE 75; O2SAT 98
== END 2025-03-11 15:36 | disposition short-term general hospital (02) ==
PROVIDERS: Emergency Provider Emergency Medicine; PCP Nurse Practitioner Family
DX: N49.2 Inflammatory disorders of scrotum (principal)
CPT/HCPCS: 76870; 80053; 83605; 85025; 85651; 86140; 87040; 96365; 96367; 96375; 99284; 99285; J0744; J1885; J3490; J7040